=== PATIENT | female | born 1985 | race American Indian/Alaskan Native ===

== ENCOUNTER 2017-09-10 14:28 | Emergency (ER) | payer MEDICAID ==
--- NOTE | 2017-09-10 14:54 | Emergency Department Report ---
Chief Complaint: Abdominal Pain Stated Complaint: ABODIMAL PAIN, DISCHARGE, FREQUENT URINATION Time Seen by Provider: 09/10/17 14:53 - HPI History of Present Illness: Patient here reports lower abdominal pain, frequent urination and large amount of vaginal discharge. She is not concerned about STD or . Patient says she's been celibate for 11 months. Denies any vaginal bleeding. Denies any urinary burning - ROS Review of Systems: All systems are negative unless stated in HPI above - Exam Vital Signs: Vital Signs 09/10/17 14:40 Temperature 97.4 F L Pulse Rate 83 Respiratory 20 Rate Blood Pressure 120/84 O2 Sat by Pulse 96 Oximetry Physical Exam: Gen.: This is a 32-year-old female well-nourished well-developed in no acute distress. Abdomen: Tender to palpate to left lower quadrant without any guarding or rebound tenderness. Abdomen is soft. Normal bowel sounds MSE screening note: Focused history and physical exam performed. Due to findings the following was ordered: ED Medical Decision Making - Medical Decision Making MDM: Patient screened by provider in triage area. Appropriate protocol initiated and patient to be seen in main ED by ED Disposition for MSE Condition: Stable Instructions: Abdominal Pain (ED)
[2017-09-10 15:53] LABS: Hematocrit 38.6 % (30.3-42.9); Hemoglobin 12.5 gm/dl (10.1-14.3); Mean Corpuscular HGB Conc 32 % (30-34); Mean Corpuscular Hemoglobin 29 pg (28-32); Mean Corpuscular Volume 91 fl (79-97); Platelet Count 304 K/mm3 (140-440); Red Blood Count 4.25 M/mm3 (3.65-5.03); Red Cell Distribution Width 15.3 % (13.2-15.2); White Blood Count 4.9 K/mm3 (4.5-11.0)
[2017-09-10 15:59] LABS: Alanine Aminotransferase 13 units/L (7-56); Albumin 4.4 g/dL (3.9-5); Albumin/Globulin Ratio 1.7 %; Alkaline Phosphatase 31 units/L (35-129); Anion Gap 16 mmol/L; BUN/Creatinine Ratio 20; Blood Urea Nitrogen 10 mg/dL (7-17); Calcium 9.2 mg/dL (8.4-10.2); Carbon Dioxide 25 mmol/L (22-30); Chloride 102.7 mmol/L (98-107); Glucose 101 mg/dL (65-100); Lipase 29 units/L (13-60); Sodium 140 mmol/L (137-145)
[2017-09-10 16:06] LABS: Eosinophils % (Auto) 1.6 % (0.0-4.3)
[2017-09-10 16:07] LABS: Basophils % (Auto) 0.6 % (0.0-1.8)
[2017-09-10 16:17] LABS: Bacteria,Urine 1+ /HPF (Negative); Bilirubin,Urine NEG (Negative); Blood,Urine MOD (Negative); Ketones,Urine NEG (Negative); Leukocyte Esterase,Urine NEG (Negative); Nitrite,Urine NEG (Negative); Protein,Urine <15 mg/dL mg/dL (Negative); Urobilinogen,Urine < 2.0 mg/dL (<2.0); WBC,Urine < 1.0 /HPF (0.0-6.0)
[2017-09-10 22:33] VITALS: BP 133/86
--- NOTE | 2017-09-10 23:21 | Emergency Department Report ---
ED Abdominal Pain HPI - General Chief Complaint: Abdominal Pain Stated Complaint: ABODIMAL PAIN, DISCHARGE, FREQUENT URINATION Time Seen by Provider: 09/10/17 14:53 Source: patient Mode of arrival: Ambulatory Limitations: No Limitations - History of Present Illness Initial Comments: PT HAS BEEN HAVING ABDOMINAL PAIN, URINARY FREQENCY, URGENCY AND COPIOUS AMOUNT OF WHITE VAGINAL DISCHARGE. PT THINKS SHE MIGHT HAVE A URINARY TRACT INFECTION AND NOT AN STD BECAUSE SHE HAS NOT HAD SEXUAL ACTIVITY IN 11 MONTHS. ART THE TIME OF MY HISTORY TAKING, SHE HAS NO ABDOMINAL PAIN MD Complaint: abdominal pain -: week(s) (1) Location: diffuse Radiation: none Migration to: no migration Severity scale (0 -10): 1 Quality: aching Consistency: constant Improves With: nothing Worsens With: nothing Associated Symptoms: denies other symptoms - Related Data Previous Rx's Medication Instructions Recorded Last Taken Type Nitrofurantoin Monohyd/M-Cryst 100 mg PO BID #14 capsule 09/10/17 Unknown Rx [Macrobid 100 mg Capsule] Allergies Allergy/AdvReac Type Severity Reaction Status Date / Time No Known Allergies Allergy Unverified 09/10/17 14:40 ED Review of Systems ROS: Stated complaint: ABODIMAL PAIN, DISCHARGE, FREQUENT URINATION Other details as noted in HPI Constitutional: denies: chills, fever Eyes: denies: eye pain, eye discharge, vision change ENT: denies: ear pain, throat pain Respiratory: denies: cough, shortness of breath, wheezing Cardiovascular: denies: chest pain, palpitations Endocrine: no symptoms reported Gastrointestinal: denies: abdominal pain, nausea, vomiting, diarrhea Genitourinary: denies: urgency, dysuria, discharge Musculoskeletal: denies: back pain, joint swelling, arthralgia Skin: denies: rash, lesions Neurological: denies: headache, weakness, paresthesias Psychiatric: denies: anxiety, depression Hematological/Lymphatic: denies: easy bleeding, easy bruising ED Past Medical Hx - Past Medical History Previous Medical History?: Yes Additional medical history: Umbilical hernia - Surgical History Past Surgical History?: No - Social History Smoking Status: Never Smoker Substance Use Type: Alcohol - Medications Home Medications: Home Medications Medication Instructions Recorded Confirmed Last Taken Type Nitrofurantoin Monohyd/M-Cryst 100 mg PO BID #14 capsule 09/10/17 Unknown Rx [Macrobid 100 mg Capsule] ED Physical Exam - General Limitations: No Limitations General appearance: alert, in no apparent distress - Head Head exam: Present: atraumatic, normocephalic - Eye Eye exam: Present: normal appearance - ENT ENT exam: Present: mucous membranes moist - Neck Neck exam: Present: normal inspection, full ROM - Respiratory Respiratory exam: Present: normal lung sounds bilaterally. Absent: respiratory distress, chest wall tenderness, accessory muscle use - Cardiovascular Cardiovascular Exam: Present: regular rate, normal rhythm. Absent: systolic murmur, diastolic murmur, rubs, gallop - GI/Abdominal GI/Abdominal exam: Present: soft, normal bowel sounds. Absent: distended, tenderness, guarding, rebound - Rectal Rectal exam: Present: deferred - Extremities Exam Extremities exam: Present: normal inspection, full ROM - Back Exam Back exam: Present: normal inspection, full ROM - Neurological Exam Neurological exam: Present: alert, oriented X3, CN II-XII intact - Psychiatric Psychiatric exam: Present: normal affect, normal mood - Skin Skin exam: Present: warm, dry, intact, normal color. Absent: rash ED Course Vital Signs 09/10/17 09/10/17 14:40 22:32 Temperature 97.4 F L 98.2 F Pulse Rate 83 80 Respiratory 20 16 Rate Blood Pressure 120/84 Blood Pressure 133/86 [Right] O2 Sat by Pulse 96 100 Oximetry ED Medical Decision Making - Lab Data Result diagrams: 09/10/17 15:22 09/10/17 15:22 - Medical Decision Making HER MAIN REASON FOR COMING ISWAS TO DETERMINE IF SHE HAS A UTI, RESULTS DISCUSSED Critical care attestation.: If time is entered above; I have spent that time in minutes in the direct care of this critically ill patient, excluding procedure time. ED Disposition Clinical Impression: Frequency of urination Hematuria Qualifiers: Hematuria type: unspecified type Qualified Code(s): R31.9 - Hematuria, unspecified Disposition: - TO HOME OR SELFCARE Is pt being admited?: No Does the pt Need Aspirin: No Condition: Stable Instructions: Abdominal Pain (ED), Acute Hematuria (ED) Prescriptions: Nitrofurantoin Monohyd/M-Cryst [Macrobid 100 mg Capsule] 100 mg PO BID #14 capsule Referrals: PASC[facility] PAT[facility] [Other] - 3-5 Days Time of Disposition: 23:21
== END 2017-09-10 23:27 | disposition home or self-care (01) ==
LOC: ED 14:28
DX: R35.0 Frequency of micturition (principal); R31.9 Hematuria, unspecified
CPT/HCPCS: 36415; 80053; 81001; 83690; 84703; 85025